=== PATIENT | female | born 1970 | race American Indian/Alaskan Native ===

== ENCOUNTER 2024-08-18 21:36 | Emergency (ER) | payer BC, SELFPAY ==
[2024-08-18 21:44] VITALS: BP 200/136
[2024-08-18 22:20] LABS: % Basophils 0.6 % (0-2); % Eosinophils 2.1 % (0-6); % Immature Granulocytes 0.3 % (0-0.5); % Lymphocytes 40.7 % (20.5-51.1); % Monocytes 5.8 % (1.7-9.3); % Neutrophils 50.5 % (42.2-75.2); Absolute Basophils 0.1 10^3/uL (0-0.2); Absolute Eosinophils 0.3 10^3/uL (0-0.7); Absolute Lymphocytes 4.7 10^3/uL (1.2-3.4); Absolute Monocytes 0.7 10^3/uL (0.1-0.6); Absolute Neutrophils 5.9 10^3/uL (1.4-6.5); Hematocrit 43.3 % (37.0-47.0); Hemoglobin 14.5 g/dL (12.0-16.0); Mean Corp Hgb Conc. 33.5 g/dL (33.0-37.0); Mean Corpuscular Hgb 29.9 pg (27.0-31.0); Mean Corpuscular Volume 89.3 fL (81.0-99.0); Mean Platelet Volume 9.6 fL (7.4-10.4); Nucleated Red Blood Cells % 0 %; Platelet Count 260 10^3/uL (130-400); Red Blood Cell Count 4.85 10^6/uL (4.20-5.40); Red Cell Dist. Width 12.9 % (11.5-14.5); White Blood Cell Count 11.7 10^3/uL (4.8-10.8)
[2024-08-18 22:34] LABS: ALT (SGPT) 22 U/L (0-35); AST (SGOT) 21 U/L (14-36); Albumin 4.5 g/dl (3.5-5.0); Alkaline Phosphatase 82 U/L (38-126); Blood Urea Nitrogen 15 mg/dl (7-17); Calcium 9.9 mg/dl (8.4-10.2); Carbon Dioxide 29 mmol/L (22-30); Chloride 104 mmol/L (98-107); Glucose 108 mg/dl (70-99); Potassium 3.8 mmol/L (3.5-5.1); Sodium 139 mmol/L (135-145); Total Bilirubin 0.4 mg/dl (0.2-1.3); Total Protein 7.5 g/dl (6.3-8.2); eGFR > 60.00
[2024-08-19] VITALS: BMI 24.4
[2024-08-19 00:14] VITALS: BP 183/95
--- NOTE | 2024-08-19 00:21 | ED.GENMED ---
History of Present Illness
General
Chief Complaint: Blood Pressure Problem
Source: patient and spouse
Exam Limitations: none
Time Seen by Provider: 08/19/24 00:04
Nursing documentation reviewed up to this point in time: agreed with
History of Present Illness
History of Present Illness:
The patient is a 53-year-old female with a past medical history of high blood pressure who reports that her blood pressure has been difficult to control recently. She was evaluated by her primary care doctor 5 days ago and her blood pressure was
found to be very elevated in the office, prompting her to start the patient on 80 mg of valsartan. Patient reports that she started the valsartan 4 days ago. Despite this, her blood pressure still remains elevated. Initially, she reports the
valsartan seem to be helping, however, today her systolic blood pressure was in the 200s. Patient reports that ' she has not been feeling well all day'. She denies headache and vision changes but states that she has chest pressure that started at
around 9:00 PM last night. However, at this time, the chest pain is nearly gone. She denies shortness of breath. Patient reports that she was able to make a cardiology appointment but it is not until November 01.
Past History
Past History
ED Past Medical History: HTN and Hypercholesterolemia
ED Past Surgical History: Gynecological
Social History
Tobacco: Non-smoker
Alcohol: Other
Drug: None
Personal:
Living: with family
Employment: Employed
Family History
Family History: Hypertension
Review of Systems
Review of Systems
Allergies reviewed?: Yes
All Other Systems: ROS reviewed and negative except as documented in HPI and ROS
Constitutional: Reports no symptoms
EENT: Reports no symptoms
Respiratory: Reports no symptoms
Cardiac: Reports chest pain
ABD/GI: Reports no symptoms
: Reports no symptoms
Musculoskeletal: Reports no symptoms
Skin: Reports no symptoms
Neurological: Reports no symptoms
Hematologic/Lymphatic: Reports no symptoms
Psychiatric: Reports no symptoms
Phy Exam
Physical Exam
Physical Exam:
Physical Exam
General: Patient appears anxious but is conversational
Neck: supple. no meningeal signs. normal psoterior pharynx
Heart: s1/s2 regular rate and rhythm, no murmur. equal radial pulses.
Lungs: no acute respiratory distress. clear bilaterally
Abdomen: normal bowel sounds. not tender. no CVAT
Neuro: alert and oriented. no focal neurological deficits
Skin: no rash
Psychiatric: well kept. interactive and cooperative
Extremities: no edema. no calf tenderness. negative homans. good distal pulses
Course
Orders/Labs/Results
Orders:
Orders
08/18/24 21:43
EKG [Electrocardiogram (*1)] Urgent
Reason for Study: Palpitations
Electrocardiogram (*1) Urgent
Reason for Study: Palpitations
EKG- Treatment ONCE
08/18/24 22:09
Complete Blood Count/With Diff Urgent
Comprehensive Metabolic Panel Urgent
08/18/24 22:20
Troponin I Urgent
08/19/24 01:18
Amlodipine [Norvasc] 10 mg PO NOW STA
08/19/24 02:01
Troponin I Urgent
Abnormal Lab Results
08/18/24
22:09
WBC 11.7 H 10^3/uL
(4.8-10.8)
Absolute Lymphs (auto) 4.7 H 10^3/uL
(1.2-3.4)
Absolute Monos (auto) 0.7 H 10^3/uL
(0.1-0.6)
Glucose 108 H mg/dl
(70-99)
08/18/24 22:09
08/18/24 22:09
Vital Signs
Initial and Last Documented VS:
Initial Vital Signs
Temp Pulse Resp BP Pulse Ox
98.5 F 118 18 200/136 98
08/18/24 21:44 08/18/24 21:44 08/18/24 21:44 08/18/24 21:44 08/18/24 21:44
Last Documented Vital Signs
Temp Pulse Resp BP Pulse Ox
98.5 F 88 20 140/80 99
08/18/24 21:44 08/19/24 02:10 08/19/24 02:10 08/19/24 02:10 08/19/24 02:10
MDM/Problems Addressed
Differential Diagnosis Includes:
Hypertensive urgency, hypertensive emergency, ACS
MDM/Problems Addressed:
Patient reports acute on chronic hypertension
Chronic conditions affecting care: HTN
Acute Exacerbation and/or Progression of Chronic Illness:
Patient may have acutely elevated high blood pressure due to poorly controlled hypertension
Acute Exacerbation and/or Progression of Chronic Illness: HTN
*Pulse Oximetry
Patient hypoxic: no
*EKG
Interpreted by ED Provider?: Yes
Interpretation: abnormal
Comparison EKG: no comparison EKG present
Rate: tachycardiac
Rhythm: sinus
[place]: normal axis
Interval: normal interval
QRS Pattern: normal QRS
Ischemia: non-specific ST changes
*Critical Care Note
Total Time (30-74mins, 75-104mins- exclusive of procedures): Not Applicable
Update Note
Update Note:
Patient watched for hours in the emergency department. She has no neurological deficits or headache to suggest stroke. Her chest pain has been gone for hours in the ED and she appears well and comfortable. Troponins trended and are both normal.
Patient encouraged to follow-up with her primary care doctor tomorrow. Additionally, I have also given patient follow-up with nephrology to discuss blood pressure control as well. Patient's blood pressure greatly improved with her relaxing in the
emergency department and taking 10 mg of amlodipine
ED Attending Note
-
Portions of this chart may have been created with voice recognition software.� Occasional wrong word or��sound alike� substitutions may have occurred due to the inherent limitations of voice recognition software.
Discharge Plan
Departure
Patient Disposition: Home (Routine Discharge)
Date of Disposition: 08/19/24
Time of Disposition: 03:02
Patient with high blood pressure during this ER visit?: Yes
Condition: Good
Covid-19: Not Applicable
Discharge Problem:
HBP (high blood pressure)
Instructions: High Blood Pressure (DC), BLOOD PRESSURE
Prescriptions:
No Action
Vitamin C
1 tab PO DAILY
Vitamin D3
1 tab PO DAILY
amlodipine
5 mg PO DAILY
valsartan
80 mg PO DAILY
Referrals:
Augustine Amos, [Family Provider] -
Deon Mcgovern MD [Active] - (Please call to see within 1 to 2 weeks)
Activity Restrictions/Additional Instructions:
Please follow-up with your primary care doctor tomorrow to discuss increasing your amlodipine to 10 mg once a day (instead of 5 mg).
Your blood pressure may be better controlled by taking 10 mg of amlodipine in the morning and 80 mg of valsartan in the evening, please discuss this option with your doctor.
Additionally, it is also helpful to follow-up with nephrology to make an appointment to discuss blood pressure control
Interventions
Interventions:
*Risk Screen - Suicide Last Done: 08/18/24 21:44
*General Assessment Last Done: 08/18/24 21:44
*Neglect/Abuse Screening Last Done: 08/18/24 21:44
ED- Fall Risk Assessment Last Done: 08/19/24 00:14
*ED COVID-19 Vaccine History Last Done: 08/18/24 21:44
ED- Cardiac Assessment Last Done: 08/19/24 00:14
ED- Neurological Assessment Last Done: 08/19/24 00:14
ED- Pulmonary Assessment Last Done: 08/19/24 00:14
Discharge Date and Time
Print Language: CROATIAN
[2024-08-19 01:13] LABS: Troponin I 0.019 ng/ml
[2024-08-19 01:28] VITALS: BP 140/90
[2024-08-19] MEDS: NORVASC 10 MG PO (01:29)
[2024-08-19 02:10] VITALS: BP 140/80
[2024-08-19 02:53] LABS: Troponin I < 0.012 ng/ml
[2024-08-19 03:10] VITALS: BP 140/70
[2024-08-19 03:15] VITALS: BP 140/70
== END 2024-08-19 03:45 | disposition home or self-care (01) ==
LOC: EMR 21:36
PROVIDERS: Emergency Medicine; EMERGENCY PHYSICIAN Emergency Medicine; FAMILY PHYSICIAN Internal Medicine
DX: I10 Essential (primary) hypertension (principal); E78.00 Pure hypercholesterolemia, unspecified; Z82.49 Family history of ischemic heart disease and other diseases of the circulatory system
CPT/HCPCS: 99283; 80053; 84484; 85025; 93005

== ENCOUNTER → 2025-02-19 08:02 | Outpatient (REF) | payer BC, SELFPAY | LOC: RAD 08:02 | PROVIDERS: ATTENDING PHYSICIAN Internal Medicine Cardiovascular Disease; FAMILY PHYSICIAN Nurse Practitioner Adult Health | DX: I10 Essential (primary) hypertension (principal) | CPT/HCPCS: 93925 ==